=== PATIENT | female | born 1995 | race Caucasian/White ===

== ENCOUNTER 2018-11-04 23:12 | Emergency (ER) | payer BC ==
[~2018-11-04] VITALS: Ht 154.9 cm; Wt 69.4 kg
--- NOTE | 2018-11-04 23:20 | NUR ---
BIBF. C/O EYES REDNESS AND FACE SWELLING. RECENTLY [place] FROM A TRIP TO [place]. -SOB. - CP. - DIZZINES. - N/V. UNSURE ABOUT INSECT BITE. PLACED ON A MONITOR, VSS.
[2018-11-04] MEDS ORDERED: methylPREDNISolone SOD SUCC 125 MG/2ML VIAL IV ONE (23:30)
[2018-11-04] MEDS ORDERED: IV NS 0.9% 1,000 ML BAG IV ONE (23:30)
[2018-11-04] MEDS ORDERED: diphenhydrAMINE HCL 50 MG/ML VIAL IV ONE (23:30)
[2018-11-04] MEDS ORDERED: FAMOTIDINE/PF INJ 20 MG/2 ML VIAL IV ONE ×2 (23:30→23:31)
[2018-11-04] MEDS ORDERED: diphenhydrAMINE HCL 50 MG/ML VIAL ONE (23:31)
[2018-11-04] MEDS ORDERED: methylPREDNISolone SOD SUCC 125 MG/2ML VIAL ONE (23:31)
--- NOTE | 2018-11-05 00:16 | NUR ---
Patient is resting comfortably in bed with eyes closed. Easily aroused. VSS
--- NOTE | 2018-11-05 01:08 | NUR ---
IV removed. Catheter intact and site benign. Pressure and 4x4 applied to site. No bleeding noted. Patient discharged to home in stable condition. Rx and Written and verbal after care instructions given. Patient verbalizes understanding of instruction.
[2018-11-05 01:09] VITALS: BP 110/55
== END 2018-11-05 01:17 | disposition other institution (70) ==
LOC: ER 23:16
DX: T78.3XXA Angioneurotic edema, initial encounter (principal); Z91.09 Other allergy status, other than to drugs and biological substances
CPT/HCPCS: 96374; 96375; 99285; J1200; J2930; J3490; J7030